=== PATIENT | female | born 1985 | race Caucasian/White ===

== ENCOUNTER 2018-04-24 12:21 | Emergency (ER) | payer SELFPAY ==
--- NOTE | 2018-04-24 12:54 | ER Document Report ---
ED Medical Screen (RME) - General Chief Complaint: Pelvic Pain Stated Complaint: URINARY PROBLEMS Time Seen by Provider: 04/24/18 12:48 Notes: Chief complaint: Pelvic pain History of complain:( obtained from----patient) 32 years old female recently diagnosed with trichomonas, presents today with pelvic pain and burning sensation around the vulvovaginal region. For the last few days. Constipated on and off. Denies any dysuria. Denies any fever chills or other constitutional symptoms. PHYSICAL EXAMINATION: GENERAL: Well-appearing, well-nourished and in no acute distress. HEAD: Atraumatic, normocephalic. EYES: Pupils equal round and reactive to light, extraocular movements intact, conjunctiva are normal. ENT: Nares patent, oropharynx clear without exudates. Moist mucous membranes. NECK: Normal range of motion, supple without lymphadenopathy LUNGS: Breath sounds clear to auscultation bilaterally and equal. No wheezes rales or rhonchi. HEART: Regular rate and rhythm without murmurs ABDOMEN: Soft, nontender, nondistended abdomen. No guarding, no rebound. No masses appreciated. Ex Dictation was performed using [email or web address] voice recognition software TRAVEL OUTSIDE OF THE [place] IN LAST 30 DAYS: No - Related Data Allergies/Adverse Reactions: No Known Allergies Allergy (Verified 04/24/18 12:21) Past Medical History Musculoskeltal Medical History: Reports Hx Musculoskeletal Trauma Psychiatric Medical History: Reports: Hx Anxiety, Hx Bipolar Disorder, Hx Depression Past Surgical History: Reports: Hx Orthopedic Surgery - torn ACL left - Immunizations Immunizations up to date: Yes Hx Diphtheria, Pertussis, Tetanus Vaccination: Yes Physical Exam - Vital signs Vitals: Temp Pulse Resp BP Pulse Ox 98.8 F 85 16 135/99 H 97 04/24/18 12:24 04/24/18 12:24 04/24/18 12:24 04/24/18 12:24 04/24/18 12:24 Course - Vital Signs Vital signs: Temp Pulse Resp BP Pulse Ox 98.8 F 85 16 135/99 H 97 04/24/18 12:24 04/24/18 12:24 04/24/18 12:24 04/24/18 12:24 04/24/18 12:24
[2018-04-24 13:28] LABS: ABSOLUTE BASOPHILS # (AUTO) 0.1 10^3/uL (0.0-0.2); ABSOLUTE EOSINOPHILS # (AUTO) 0.5 10^3/uL (0.0-0.6); ABSOLUTE LYMPHOCYTES (AUTO) 2.6 10^3/uL (0.5-4.7); ABSOLUTE MONOCYTES (AUTO) 0.5 10^3/uL (0.1-1.4); ABSOLUTE NEUT (AUTO) 5.4 10^3/uL (1.7-8.2); BASOPHILS % (AUTO) 0.7 % (0-2); EOSINOPHILS % (AUTO) 5.7 % (0-6); HEMATOCRIT 39.5 % (36.0-47.0); HEMOGLOBIN 13.4 g/dL (12.0-15.5); LYMPHOCYTES % (AUTO) 28.9 % (13-45); MEAN CORPUSCULAR HEMOGLOBIN 30.2 pg (27.0-33.4); MEAN CORPUSCULAR VOLUME 89 fl (80-97); MONOCYTES % (AUTO) 5.7 % (3-13); PLATELET COUNT 346 10^3/uL (150-450); RED BLOOD COUNT 4.45 10^6/uL (3.72-5.28); TOTAL CELLS COUNTED % (AUTO) 100 %; WHITE BLOOD COUNT 9.2 10^3/uL (4.0-10.5)
[2018-04-24 13:47] LABS: ANION GAP 8 (5-19); BLOOD UREA NITROGEN 8 mg/dL (7-20); CALCIUM 9.7 mg/dL (8.4-10.2); CARBON DIOXIDE 27 mmol/L (22-30); CHLORIDE 106 mmol/L (98-107); GLUCOSE 93 mg/dL (75-110); POTASSIUM 4.2 mmol/L (3.6-5.0); SODIUM 141.1 mmol/L (137-145)
[2018-04-24 14:15] LABS: APPEARANCE,URINE CLOUDY; BILIRUBIN,URINE NEGATIVE (NEGATIVE); COLOR,URINE YELLOW; GLUCOSE, URINE NEGATIVE (NEGATIVE); KETONES,URINE NEGATIVE (NEGATIVE); LEUKOCYTE ESTERASE,URINE SMALL (NEGATIVE); NITRITE,URINE NEGATIVE (NEGATIVE); PROTEIN,URINE NEGATIVE (NEGATIVE); URINE SPECIFIC GRAVITY 1.027; UROBILINOGEN,URINE NEGATIVE mg/dL (<2.0)
[2018-04-24 14:49] LABS: RBCS (WET MOUNT) RARE RBCS SEEN; T.VAGINALIS (WET MOUNT) NO TRICHOMONAS SEEN; WBCS (WET MOUNT) FEW WBCS SEEN; YEAST (WET MOUNT) NO YEAST SEEN
--- NOTE | 2018-04-24 14:59 | ER Document Report ---
ED GI/ - General Chief Complaint: Pelvic Pain Stated Complaint: URINARY PROBLEMS Time Seen by Provider: 04/24/18 12:48 Primary Care Provider: CHRISTIANO SIMMONS MD [EMERITUS] - Follow up as needed ROBBI ESQUIVEL MD [ACTIVE STAFF] - Follow up as needed Mode of Arrival: Ambulatory Information source: Patient Notes: Patient is an otherwise healthy 32-year-old female who presents to the emergency department with complaints of low abdominal pain, vaginal pain and low back pain. Patient also reports dark urine. Patient reports approximately 3 weeks ago she was treated for trichomonas and a urinary tract infection. She states all of her symptoms resolved. She states she then returned to the emergency department approximately 2 weeks ago in [place] where she had the same complaint she has today. She reports a CT of the abdomen and pelvis was done as well as a transvaginal ultrasound which patient states were both normal. Patient reports she continues to have nausea with low abdominal pain and pain in the vaginal area. Denies fevers. Patient is unsure if she is having any abnormal discharge. She does report possible exposure to STDs. Past medical history includes bipolar, anxiety, ADHD. Surgical history includes orthopedic surgery. TRAVEL OUTSIDE OF THE [place] IN LAST 30 DAYS: No - Related Data Allergies/Adverse Reactions: No Known Allergies Allergy (Verified 04/24/18 12:21) Past Medical History - General Information source: Patient Last Menstrual Period: 04/08/18 - Social History Smoking Status: Never Smoker Chew tobacco use (# tins/day): No Frequency of alcohol use: None Drug Abuse: None Family History: DM, Malignancy Patient has suicidal ideation: No Patient has homicidal ideation: No Renal/ Medical History: Denies: Hx Peritoneal Dialysis Musculoskeletal Medical History: Reports Hx Musculoskeletal Trauma Psychiatric Medical History: Reports: Hx Anxiety, Hx Bipolar Disorder, Hx Depression Past Surgical History: Reports: Hx Orthopedic Surgery - torn ACL left - Immunizations Immunizations up to date: Yes Hx Diphtheria, Pertussis, Tetanus Vaccination: Yes Review of Systems - Review of Systems Constitutional: denies: Chills, Fever EENT: No symptoms reported Cardiovascular: No symptoms reported Respiratory: No symptoms reported Gastrointestinal: Abdominal pain, Nausea. denies: Diarrhea, Vomiting Genitourinary: Other - Dark urine. denies: Dysuria, Frequency, Flank pain Female Genitourinary: Other - Vaginal pain Musculoskeletal: Back pain Skin: No symptoms reported Hematologic/Lymphatic: No symptoms reported Neurological/Psychological: No symptoms reported Physical Exam - Vital signs Vitals: Temp Pulse Resp BP Pulse Ox 98.8 F 85 16 135/99 H 97 04/24/18 12:24 04/24/18 12:24 04/24/18 12:24 04/24/18 12:24 04/24/18 12:24 - Notes Notes: PHYSICAL EXAMINATION: GENERAL: Well-appearing, well-nourished and in no acute distress. HEAD: Atraumatic, normocephalic. EYES: Pupils equal round and reactive to light, extraocular movements intact, conjunctiva are normal. ENT: Nares patent, oropharynx clear without exudates. Moist mucous membranes. NECK: Normal range of motion, supple without lymphadenopathy LUNGS: Breath sounds clear to auscultation bilaterally and equal. No wheezes rales or rhonchi. HEART: Regular rate and rhythm without murmurs ABDOMEN: Soft, nondistended abdomen. Tenderness to palpation to right upper, epigastric, left upper and left lower quadrants. No guarding, no rebound. No masses appreciated. Female : Vaginal speculum exam reveals thin white discharge from the cervix, cervical motion tenderness noted, no adnexal tenderness. Musculoskeletal: Normal range of motion, no pitting or edema. No cyanosis. NEUROLOGICAL: Cranial nerves grossly intact. Normal speech, normal gait. Normal sensory, motor exams PSYCH: Normal mood, normal affect. SKIN: Warm, Dry, normal turgor, no rashes or lesions noted. Course - Re-evaluation Re-evalutation: CBC, CMP and urinalysis are unremarkable. Vaginal speculum exam reveals significant cervical motion tenderness. No evidence of bacteria, yeast or trichomonas on the wet mount. Will start patient on antibiotics for presumed pelvic inflammatory infection due to recent STI and current cervical motion ten derness. Patient encouraged to follow-up with [employer]GER [employer]. - Vital Signs Vital signs: Temp Pulse Resp BP Pulse Ox 98.7 F 66 18 125/79 98 04/24/18 15:30 04/24/18 15:30 04/24/18 15:30 04/24/18 15:30 04/24/18 15:30 - Laboratory Result Diagrams: 04/24/18 13:14 04/24/18 13:14 Laboratory results interpreted by me: 04/24/18 12:58 Urine Blood SMALL H Ur Leukocyte Esterase SMALL H Discharge - Discharge Clinical Impression: Pelvic inflammatory disease Condition: Stable Disposition: HOME, SELF-CARE Instructions: Pelvic Inflammatory Disease ([facility]) Additional Instructions: Please take antibiotics as prescribed. Finish the entire course even if your symptoms resolve. It is very important that you follow-up with a telecommunications line installer. I have given you the name of several in the area. The chlamydia and gonorrhea testing are still pending, may take several hours to result. Prescriptions: Doxycycline Hyclate 100 mg PO BID #28 capsule Metronidazole [Flagyl 500 mg Tablet] 500 mg PO BID #28 tablet Ondansetron [Zofran Odt 4 mg Tablet] 1 - 2 tab PO Q4H PRN #15 tab.rapdis PRN Reason: For Nausea/Vomiting Referrals: CHRISTIANO SIMMNOS MD [EMERITUS] - Follow up as needed ROBBI ESQUIVEL MD [ACTIVE STAFF] - Follow up as needed
[2018-04-24 15:29] LABS: CHLAM PCR NOT DETECTED (NOT DETECT); GON PCR NOT DETECTED (NOT DETECT)
[2018-04-24 15:32] VITALS: BP 125/79
== END 2018-04-24 15:33 | disposition home or self-care (01) ==
LOC: ER 12:21
DX: N73.9 Female pelvic inflammatory disease, unspecified (principal); R10.2 Pelvic and perineal pain; M54.5 Low back pain; R11.0 Nausea; R10.811 Right upper quadrant abdominal tenderness; R10.816 Epigastric abdominal tenderness; R10.812 Left upper quadrant abdominal tenderness; R10.814 Left lower quadrant abdominal tenderness; R39.89 Other symptoms and signs involving the genitourinary system; Z87.440 Personal history of urinary (tract) infections
CPT/HCPCS: 36415; 80048; 81001; 81025; 85025; 87210; 87491; 87591; 99284

== ENCOUNTER 2018-05-19 23:37 | Emergency (ER) | payer SELFPAY ==
[2018-05-19 23:47] VITALS: BP 131/85
== END 2018-05-20 05:40 | disposition left against medical advice (07) ==
LOC: ER 23:37
DX: Z53.21 Procedure and treatment not carried out due to patient leaving prior to being seen by health care provider (principal)

== ENCOUNTER 2019-09-04 21:36 | Emergency (ER) | payer SELFPAY ==
[2019-09-05 00:10] LABS: APPEARANCE,URINE SLIGHTLY-CLOUDY; BILIRUBIN,URINE NEGATIVE (NEGATIVE); COLOR,URINE YELLOW; GLUCOSE, URINE NEGATIVE (NEGATIVE); KETONES,URINE NEGATIVE (NEGATIVE); LEUKOCYTE ESTERASE,URINE NEGATIVE (NEGATIVE); NITRITE,URINE NEGATIVE (NEGATIVE); PROTEIN,URINE NEGATIVE (NEGATIVE); UROBILINOGEN,URINE NEGATIVE mg/dL (<2.0)
[2019-09-05] MEDS ORDERED: DIAZEPAM INJ 10 MG/2 ML DISP.SYRIN IM ONE (01:00)
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
[2019-09-05] MEDS ORDERED: OXYCODONE-ACETAMINOPHEN 5-325 MG TABLET PO ONE (02:21)
--- NOTE | 2019-09-05 03:38 | RADIOLOGY REPORT (SQ) ---
EXAM DESCRIPTION: XR LUMBAR SPINE ANTEROPOSTERIOR, LATERAL, AND OBLIQUES COMPLETED DATE/TME: 09/05/2019 01:01 CLINICAL HISTORY: 34 years, Female, fall, pain COMPARISON: None. FINDINGS: 5 views of the lumbar spine. 5 nonrib-bearing lumbar vertebrae. Pedicles identified throughout. No acute cortical step-offs or subluxation. No pars interarticularis defects definitely identified. No abnormalities of visualized sacrum. Intervertebral disc height preserved. No abnormalities identified in the abdominal soft tissues. IMPRESSION: 1. No acute abnormality of the lumbar spine by plain film criteria. copyright 2010 [email or web address]- All Rights Reserved
[2019-09-05 04:05] VITALS: BP 122/74
== END 2019-09-05 03:55 | disposition home or self-care (01) ==
LOC: ER 21:36
DX: S39.012A Strain of muscle, fascia and tendon of lower back, initial encounter (principal); M54.9 Dorsalgia, unspecified; V87.8XXA Person injured in other specified noncollision transport accidents involving motor vehicle (traffic), initial encounter; J45.909 Unspecified asthma, uncomplicated
CPT/HCPCS: 99283; 96372; 81025; 81001; 72110; J3360